=== PATIENT | female | born 1970 | race Caucasian/White ===

== ENCOUNTER → 2018-10-19 | Outpatient (CLI) | payer BC ==
--- NOTE | 2018-10-19 14:38 | RAD ---
EXAM: Right ankle, 3 views. HISTORY: Pain. COMPARISON: None. FINDINGS: 3 views of the right ankle are obtained. There is no fracture, dislocation or subluxation. No osteochondral lesion is seen. There is a small plantar spur. IMPRESSION: No acute osseous finding. Electronically signed by: Denae Pena MD (10/19/2018 2:35 PM) [id number]
== END | disposition home or self-care (01) ==
LOC: PMG 14:20
PROVIDERS: ATTEND Family Medicine
DX: M25.571 Pain in right ankle and joints of right foot (principal); M06.9 Rheumatoid arthritis, unspecified
CPT/HCPCS: 73610

== ENCOUNTER → 2019-02-19 | Outpatient (CLI) | payer BC ==
--- NOTE | 2019-02-19 16:34 | RAD ---
Three-view right hand radiographs 02/19/2019 CLINICAL HISTORY: Injury to the right hand. Pain. PA, lateral and oblique digital radiographs of the right hand were obtained. No fracture or dislocation of the right hand is seen. No radiopaque foreign body is noted. Mild degenerative changes are seen scattered throughout the interphalangeal joints of the right hand. Mild to moderate degenerative changes are seen involving the mid carpal joint and radiocarpal joint. IMPRESSION: No fracture or dislocation of the right hand is seen. Electronically signed by: Malik Villareal MD (02/19/2019 4:31 PM) [place] [id number]
== END | disposition home or self-care (01) ==
LOC: PMG 09:07
PROVIDERS: ATTEND Family Medicine
DX: M19.041 Primary osteoarthritis, right hand (principal)
CPT/HCPCS: 73130

== ENCOUNTER → 2020-07-02 | Outpatient (CLI) | payer BC ==
--- NOTE | 2020-07-02 15:30 | RAD ---
Examination: 1. Bilateral hips with AP pelvis 2. Bilateral knees 2 views each INDICATION: Pain FINDINGS: Pelvis and bilateral hips show an intact pelvic ring with no fracture or dislocation and no significant degenerative changes. Soft tissues are unremarkable. There is an ossific density projecting over the lesser trochanter of the right hip that could reflect sequelae of old avulsion injury or heterotopic soft tissue ossification. Bilateral knees, AP and lateral views show normal mineralization and alignment with no fracture or aggressive osseous lesions. No significant degenerative change. The soft tissues are unremarkable. IMPRESSION: No acute findings on pelvis and bilateral hip x-rays or in bilateral knee x-rays. There is ossification near the right lesser trochanter that could reflect sequelae of old avulsion injury. Electronically signed by: Maria D Samuels MD (07/02/2020 3:27 PM) [id number]
== END ==
LOC: RAD 10:55
PROVIDERS: ATTEND Family Medicine
DX: M25.551 Pain in right hip (principal); M25.562 Pain in left knee
CPT/HCPCS: 73521; 73560

== ENCOUNTER → 2021-12-14 | Outpatient (CLI) | payer BC ==
--- NOTE | 2021-12-14 17:12 | RAD ---
EXAM: XR RT WRIST 3VIEWS 12/14/2021 3:20 PM CLINICAL INDICATION: History of right wrist fracture, rheumatoid arthritis, stiffness and weakness. COMPARISON: Right hand radiograph 02/19/2019 TECHNIQUE: PA, oblique, and lateral views of the right wrist FINDINGS: There is no acute fracture. Alignment is normal. Joint spaces are maintained. There are no erosions. No soft tissue abnormality. IMPRESSION: No acute osseous abnormality or evidence of arthritis in the right wrist. Electronically signed by: Mary Mathis MD (12/14/2021 5:10 PM) [id number]
== END ==
LOC: RAD 15:13
PROVIDERS: ATTEND Specialist
DX: M06.9 Rheumatoid arthritis, unspecified (principal)
CPT/HCPCS: 73110